=== PATIENT | male | born 1960 | race Caucasian/White ===

== ENCOUNTER → 2021-02-06 | Outpatient (CLI) | payer OTHER | LOC: KOH-I 14:19 | DX: M79.672 Pain in left foot (principal); M79.671 Pain in right foot; R93.6 Abnormal findings on diagnostic imaging of limbs | CPT/HCPCS: 73630 ==

== ENCOUNTER → 2021-12-21 | Outpatient (CLI) | payer MEDICARE | LOC: KOH-I 14:25 | DX: J01.81 Other acute recurrent sinusitis (principal); J34.2 Deviated nasal septum | CPT/HCPCS: 70486 ==